=== PATIENT | male | born 1980 | race Two or more races ===

== ENCOUNTER 2022-04-05 22:01 | Emergency (ER) | payer BC, OTHER ==
[~2022-04-05] VITALS: Ht 177.8 cm; Wt 104.3 kg
[2022-04-05] MEDS ORDERED: KETOROLAC TROMETHAMINE INJ 30 MG/ML VIAL ONE (22:29)
[2022-04-05] MEDS ORDERED: KETOROLAC TROMETHAMINE INJ 60 MG/2 ML VIAL IM ONE (22:30)
--- NOTE | 2022-04-05 22:36 | NUR ---
XRAY AT BEDSIDE
[2022-04-05] MEDS ORDERED: IBUP-1953 PO (23:29)
[2022-04-05 23:58] VITALS: BP 138/86
--- NOTE | 2022-04-05 23:58 | NUR ---
Patient discharged to home in stable condition. Written and verbal after care instructions given. Patient verbalizes understanding of instruction.
== END 2022-04-05 23:59 | disposition home or self-care (01) ==
LOC: ER 22:13
DX: S62.111A Displaced fracture of triquetrum [cuneiform] bone, right wrist, initial encounter for closed fracture (principal); Z79.1 Long term (current) use of non-steroidal anti-inflammatories (NSAID); X58.XXXA Exposure to other specified factors, initial encounter; Y93.89 Activity, other specified; Y92.89 Other specified places as the place of occurrence of the external cause; Y99.8 Other external cause status
CPT/HCPCS: 99284; 29125; 96372; 73080; 73130; 73110; J1885